=== PATIENT | male | born 1985 | race Caucasian/White ===

== ENCOUNTER 2018-11-20 11:25 | Emergency (ER) | payer SELFPAY | END 2018-11-20 11:48 | disposition home or self-care (01) | LOC: BURERS 11:25 | DX: S40.862A Insect bite (nonvenomous) of left upper arm, initial encounter (principal); F17.210 Nicotine dependence, cigarettes, uncomplicated; W57.XXXA Bitten or stung by nonvenomous insect and other nonvenomous arthropods, initial encounter | CPT/HCPCS: 99282 ==

== ENCOUNTER 2018-12-05 19:14 | Emergency (ER) | payer SELFPAY ==
[2018-12-05] MEDS ORDERED: Clindamycin 150 MG CAP ONE (19:28)
== END 2018-12-05 19:37 | disposition home or self-care (01) ==
LOC: BURERS 19:14
DX: K04.7 Periapical abscess without sinus (principal); F17.210 Nicotine dependence, cigarettes, uncomplicated
CPT/HCPCS: 99282

== ENCOUNTER 2020-01-16 23:05 | Emergency (ER) | payer SELFPAY ==
[2020-01-16] MEDS ORDERED: Bupivacaine HCl 0.5%/Epinephrine 1:200,000/PF 30 ml Vial ONE (23:29)
[2020-01-16] MEDS ORDERED: Clindamycin 150 MG CAP ONE (23:30)
[2020-01-16] MEDS ORDERED: Acetaminophen 500 MG TAB ONE (23:30)
== END 2020-01-16 23:39 | disposition home or self-care (01) ==
LOC: BURERS 23:05
DX: K02.9 Dental caries, unspecified (principal); K03.81 Cracked tooth; F17.210 Nicotine dependence, cigarettes, uncomplicated
CPT/HCPCS: 64400

== ENCOUNTER 2021-05-31 17:20 | Emergency (ER) | payer SELFPAY ==
[2021-05-31] MEDS ORDERED: predniSONE 20 MG TAB ONE (18:09)
== END 2021-05-31 20:04 | disposition home or self-care (01) ==
LOC: BURERS 17:20
DX: J06.9 Acute upper respiratory infection, unspecified (principal); F17.210 Nicotine dependence, cigarettes, uncomplicated; E66.9 Obesity, unspecified; Z68.45 Body mass index [BMI] 70 or greater, adult
CPT/HCPCS: 71046; 87804; J7512; J7620

== ENCOUNTER 2022-07-13 17:26 | Emergency (ER) | payer SELFPAY | END 2022-07-13 18:45 | disposition home or self-care (01) | LOC: BURERS 17:26 | DX: J22 Unspecified acute lower respiratory infection (principal); F17.210 Nicotine dependence, cigarettes, uncomplicated | CPT/HCPCS: 99283 ==